=== PATIENT | male | born 1975 | race Caucasian/White ===

== ENCOUNTER 2018-01-18 09:26 | Observation (INO) | payer OTHER ==
[2018-01-18] MEDS ORDERED: HEPARIN SODIUM,PORCINE 5,000 UNIT/ML 1 ML VIAL IV STA (13:13)
[2018-01-18] MEDS ORDERED: NITROGLYCERIN OINT 1 INCH/GM PACKET TOPICAL STA (13:13)
[2018-01-18] MEDS ORDERED: HEPARIN SOD,PORK IN 0.45% NACL 25,000 UNIT in 0.45% NACL 1 500ML.BAG IV SCH (13:15)
[2018-01-18] MEDS ORDERED: SODIUM CHLORIDE 0.9% 1,000 ML IV SCH (13:30)
[2018-01-18 13:55] LABS: Basophils # (A) 0.1 k/uL (0-0.2); Basophils % (A) 1 %; Eosinophils # (A) 0.2 k/uL (0-0.7); Eosinophils % (A) 1 %; HCT 48.2 % (39.0-53.0); HGB 15.8 gm/dL (13.0-17.5); Lymphocytes # (A) 2.5 k/uL (1.0-4.8); Lymphocytes % (A) 19 %; MCH 30.9 pg (25.0-35.0); MCHC 32.7 g/dL (31.0-37.0); MCV 94.4 fL (80.0-100.0); Mean Platelet Volume 7.8; Monocytes # (A) 0.8 k/uL (0-1.0); Monocytes % (A) 6 %; Neutrophils # (A) 9.3 k/uL (1.3-7.7); Neutrophils % (A) 72 %; Platelet Count 211 k/uL (150-450); RBC 5.11 m/uL (4.30-5.90); WBC 12.9 k/uL (3.8-10.6)
[2018-01-18 14:04] LABS: Partial Thromboplastin Time 23.5 sec (22.0-30.0); Prothrombin Time 10.1 sec (9.0-12.0)
[2018-01-18 14:06] LABS: ALT 29 U/L (21-72); AST 15 U/L (17-59); Alkaline Phosphatase 57 U/L (38-126); Anion Gap 10 mmol/L; Blood Urea Nitrogen 17 mg/dL (9-20); Calcium 9.1 mg/dL (8.4-10.2); Carbon Dioxide 22 mmol/L (22-30); Chloride 107 mmol/L (98-107); Glucose 89 mg/dL (74-99); Magnesium 1.8 mg/dL (1.6-2.3); Potassium 4.2 mmol/L (3.5-5.1); Sodium 139 mmol/L (137-145); Total Bilirubin 0.5 mg/dL (0.2-1.3); Total Protein 6.7 g/dL (6.3-8.2)
[2018-01-18 14:59] LABS: Creatine Kinase 92 U/L (55-170)
--- NOTE | 2018-01-18 15:01 | P.CRDCN ---
History of Present Illness History of present illness: Mr. Grullon is a pleasant 42-year-old male with no significant past medical history other than chronic nicotine dependence. He states he doesn' t follow with a physician for at least the last 10 years. He denies history of hypertension, dyslipidemia, diabetes mellitus or coronary artery disease. His mother and father both had premature coronary artery disease in their 30's and 40's and are both decreased. He has never seen a wood molder for any reason. We have been asked to see him in consultation for chest pain. He states yesterday while he was walking leisurely through his barn he felt a tight pinching sensation in the left precordial region and into his axilla. The pain was intense in nature but brief. It was intermittent throughout the remainder of the day yesterday with no specific aggravating factors. He denies radiation to the arm, back, neck or jaw. He denies associated shortness of breath, dizziness, palpitations, nausea, vomiting or diaphoresis. He went to sleep last night and the pain had resolved. He woke up this morning with the pain again ongoing in the chest in the same region radiating to the left axilla. He still did not have any radiation to the arm, back, neck or jaw or shortness of breath, dizziness, palpitations, nausea, vomiting or diaphoresis. He was transferred here from [facility] for further cardiac evaluation. At the time of my exam he is seen sitting up in bed with family at the bedside. He continues to complain of a pinching sensation in the chest. He also mentions that at times he feels his heart racing briefly with no specific aggravating factors. Comes at rest mostly. EKG obtained at [place] on admission reveals sinus mechanism with no acute ST or T wave abnormalities noted. Chest x-ray obtained at [facility]'s negative for an acute cardiopulmonary process. Laboratory data at [facility] reviewed, hemoglobin 17, platelets 237 , WBC 10.4, sodium 137, potassium 4.1, creatinine 1.1, cardiac enzymes negative times one at 725 this morning. He takes no daily medications. Review of Systems At the time of my exam: CONSTITUTIONAL: Denies fever. Denies chills. EYES: Denies blurred vision. Denies vision changes. Denies eye pain. EARS, NOSE, MOUTH & THROAT: Denies headache. Denies sore throat. Denies ear pain. CARDIOVASCULAR: Complains of chest pain. Denies shortness of breath. Denies orthopnea. Denies PND. Denies palpitations. RESPIRATORY: Denies cough. GASTROINTESTINAL: Denies abdominal pain. Denies diarrhea. Denies constipation. Denies nausea. Denies vomiting. MUSCULOSKELETAL: Denies myalgias. INTEGUMENTARY: Denies pruitis. Denies rash. NEUROLOGIC: Denies numbness. Denies tingling. Denies weakness. PSYCHIATRIC: Denies anxiety. Denies depression. ENDOCRINE: Denies fatigue. Denies weight change. Denies polydipsia. Denies polyurina. GENITOURINARY: Denies burning, hematuria or urgency with micturation. HEMATOLOGIC: Denies history of anemia. Denies bleeding. Past Medical History Additional Past Medical History / Comment(s): Bronchitis History of Any Multi-Drug Resistant Organisms: None Reported Past Surgical History: Tonsillectomy Past Anesthesia/Blood Transfusion Reactions: No Reported Reaction Smoking Status: Current every day smoker - Past Family History Father Family Medical History: COPD Additional Family Medical History / Comment(s): Father from emphysema at the age of 60 or 61yrs. Mother Family Medical History: Dementia Additional Family Medical History / Comment(s): Mother from dementia in her 50s. Medications and Allergies Home Medications Medication Instructions Recorded Confirmed Type Aspirin 650 mg PO ONCE PRN 01/18/18 01/18/18 History Allergies Allergy/AdvReac Type Severity Reaction Status Date / Time No Known Allergies Allergy Verified 01/18/18 12:45 Physical Exam Vitals: Vital Signs Temp Pulse Resp BP Pulse Ox 01/18/18 12:00 60 16 01/18/18 11:56 98.3 F 60 16 154/94 96 Intake and Output 01/17/18 01/18/18 01/18/18 22:59 06:59 14:59 Intake Total 200 Balance 200 Intake: Oral 200 Other: Voiding Method Toilet Weight 91.5 kg Blood pressure 154/94 heart rate 68 afebrile maintaining oxygen saturation on room air GENERAL: This is a 42-year-old male in no apparent distress at the time of my examination. HEENT: Head is atraumatic, normocephalic. Pupils are equal, round. Sclerae anicteric. Conjunctivae are clear. Mucous membranes of the mouth are moist. Neck is supple. There is no jugular venous distention. No carotid bruit is heard. LUNGS: Clear to auscultation no wheezes, rales or rhonchi. Positive chest wall tenderness is noted on palpation. No chest wall tenderness with deep breathing. HEART: Regular rate and rhythm without murmurs, rubs or gallops. S1 and S2 heard. ABDOMEN: Soft, nontender. Bowel sounds are heard. No organomegaly noted. EXTREMITIES: No evidence of peripheral edema and no calf tenderness noted. VASCULAR: Radial and dorsalis pedis pulses palpated, no evidence of clubbing. NEUROLOGIC: Patient is awake, alert and oriented x3. Results 01/18/18 13:35 01/18/18 13:35 Cardiac Enzymes 01/18/18 Range/Units 13:35 AST 15 L (17-59) U/L Coagulation 01/18/18 Range/Units 13:35 PT 10.1 (9.0-12.0) sec APTT 23.5 (22.0-30.0) sec CBC 01/18/18 Range/Units 13:35 WBC 12.9 H (3.8-10.6) k/uL RBC 5.11 (4.30-5.90) m/uL Hgb 15.8 (13.0-17.5) gm/dL Hct 48.2 (39.0-53.0) % Plt Count 211 (150-450) k/uL Comprehensive Metabolic Panel 01/18/18 Range/Units 13:35 Sodium 139 (137-145) mmol/L Potassium 4.2 (3.5-5.1) mmol/L Chloride 107 (98-107) mmol/L Carbon Dioxide 22 (22-30) mmol/L BUN 17 (9-20) mg/dL Creatinine 0.88 (0.66-1.25) mg/dL Glucose 89 (74-99) mg/dL Calcium 9.1 (8.4-10.2) mg/dL AST 15 L (17-59) U/L ALT 29 (21-72) U/L Alkaline Phosphatase 57 (38-126) U/L Total Protein 6.7 (6.3-8.2) g/dL Albumin 4.0 (3.5-5.0) g/dL Current Medications Generic Name Dose Route Start Last Admin Trade Name Freq PRN Reason Stop Dose Admin Heparin Sodium/Sodium Chloride 500 mls @ 19.98 mls/hr 01/18/18 13:15 25,000 unit/ Sodium Chloride IV .Q24H AGNES Protocol 10.92 UNITS/KG/HR Sodium Chloride 1,000 mls @ 100 mls/hr 01/18/18 13:30 Saline 0.9% IV .Q10H AGNES Intake and Output 01/17/18 01/18/18 01/18/18 22:59 06:59 14:59 Intake Total 200 Balance 200 Intake: Oral 200 Other: Voiding Method Toilet Weight 91.5 kg Patient Weight 01/19/18 06:59 Weight 91.5 kg 01/18/18 13:35 01/18/18 13:35 Assessment and Plan Assessment: ASSESSMENT Chest pain, atypical. No EKG evidence of acute ischemia Chronic nicotine dependence Daily marijuana use PLAN Continue to obtain serial cardiac enzymes to rule out an acute coronary event. Obtain 2D echocardiogram and doppler study to assess cardiac structure and function. Check lipid panel, TSH and magnesium level. Smoking tobacco and marijuana cessation highly recommended and discussed. Further recommendations to follow based on clinical course. Thank you kindly for this consultation. Nurse Practitioner note has been reviewed, I agree with a documented findings and plan of care. Patient was seen and examined.
[2018-01-18 15:11] LABS: Creatine Kinase MB 0.5 ng/mL (0.0-2.4); Troponin I <0.012 ng/mL (0.000-0.034)
[2018-01-18] MEDS ORDERED: IPRATROPIUM-ALBUTEROL 3 ML NEB INHALATION PRN (15:58)
--- NOTE | 2018-01-18 16:04 | P.HPIM ---
History of Present Illness Patient is a 42-year-old pleasant gentleman with no significant past medical history came in with compensative chest pain sharp in nature 3-4/10 in severity nonradiating and not associated with food, nonpleuritic , constant pain not associated with shortness of breath lightheadedness diaphoresis. Patient does have a cough unable to bring up anything chest x-ray did not show any pneumonic process. Patient had 2 sets of troponins that are negative EKG showed normal normal sinus rhythm. Patient does have history of premature coronary artery disease in both mother and father had a I can't infarctions in their 30s and 40s. Patient denied any fever chills nausea vomiting no other significant abnormality was appreciated. Patient was transferred from [facility]. Review of Systems REVIEW OF SYSTEMS: CONSTITUTIONAL: No fever, no malaise, no fatigue. HEENT: No recent visual problems or hearing problems. Denied any sore throat. CARDIOVASCULAR: No chest pain, orthopnea, PND, no palpitations, no syncope. PULMONARY: No shortness of breath, no cough, no hemoptysis. GASTROINTESTINAL: No diarrhea, no nausea, no vomiting, no abdominal pain. Normoactive bowel sounds. NEUROLOGICAL: No headaches, no weakness, no numbness. HEMATOLOGICAL: Denies any bleeding or petechiae. GENITOURINARY: Denies any burning micturition, frequency, or urgency. MUSCULOSKELETAL/RHEUMATOLOGICAL: Denies any joint pain, swelling, or any muscle pain. ENDOCRINE: Denies any polyuria or polydipsia. The rest of the 14-point review of systems is negative. Past Medical History Additional Past Medical History / Comment(s): Bronchitis History of Any Multi-Drug Resistant Organisms: None Reported Past Surgical History: Tonsillectomy Past Anesthesia/Blood Transfusion Reactions: No Reported Reaction Smoking Status: Current every day smoker - Past Family History Father Family Medical History: COPD Additional Family Medical History / Comment(s): Father from emphysema at the age of 60 or 61yrs. Mother Family Medical History: Dementia Additional Family Medical History / Comment(s): Mother from dementia in her 50s. Medications and Allergies Home Medications Medication Instructions Recorded Confirmed Type Aspirin 650 mg PO ONCE PRN 01/18/18 01/18/18 History Allergies Allergy/AdvReac Type Severity Reaction Status Date / Time No Known Allergies Allergy Verified 01/18/18 12:45 Physical Exam Vitals: Vital Signs Temp Pulse Resp BP Pulse Ox 01/18/18 15:51 98.3 F 59 L 16 143/84 99 01/18/18 12:00 60 16 01/18/18 11:56 98.3 F 60 16 154/94 96 Intake and Output 01/18/18 01/18/18 01/18/18 06:59 14:59 22:59 Intake Total 200 Balance 200 Intake: Oral 200 Other: Voiding Method Toilet Weight 91.5 kg PHYSICAL EXAMINATION: GENERAL: The patient is alert and oriented x3, not in any acute distress. Well developed, well nourished. HEENT: Pupils are round and equally reacting to light. EOMI. No scleral icterus. No conjunctival pallor. Normocephalic, atraumatic. No pharyngeal erythema. No thyromegaly. CARDIOVASCULAR: S1 and S2 present. No murmurs, rubs, or gallops. PULMONARY: Will expiratory wheezing was appreciated. ABDOMEN: Soft, nontender, nondistended, normoactive bowel sounds. No palpable organomegaly. MUSCULOSKELETAL: No joint swelling or deformity. EXTREMITIES: No cyanosis, clubbing, or pedal edema. NEUROLOGICAL: Gross neurological examination did not reveal any focal deficits. SKIN: No rashes. Results CBC & Chem 7: 01/18/18 13:35 01/18/18 13:35 Labs: Abnormal Lab Results - Last 24 Hours (Table) 01/18/18 01/18/18 Range/Units 13:35 13:35 WBC 12.9 H (3.8-10.6) k/uL Neutrophils # 9.3 H (1.3-7.7) k/uL AST 15 L (17-59) U/L Thrombosis Risk Factor Assmnt - Choose All That Apply Any of the Below Risk Factors Present?: Yes Each Factor Represents 1 point: Age 41-60 years, Obesity (BMI >25) Other Risk Factors: No Other congenital or acquired thrombophilia - If yes, enter type in comment: No Thrombosis Risk Factor Assessment Total Risk Factor Score: 2 Thrombosis Risk Factor Assessment Level: Low Risk Assessment and Plan Plan: -Chest pain: Atypical noncardiac pain. Cardiology will evaluate the patient probably a stress test tomorrow considering to this practice. Echocardiogram is being obtained.Third set of troponin will be obtained. His chest pain is probably musculoskeletal in nature. Patient's chest pain is known nonpleuritic but will obtain a d-dimer. -Undiagnosed early stasis COPD with minimal exacerbation: Patient will be started on inhaled steroids and as needed albuterol ipratropium. -Nicotine abuse and marijuana abuse: Counseling was provided.
[2018-01-18] MEDS: SYMBICORT 160-4.5 MCG INHALER INHALATION SCH (19:43)
[2018-01-19 00:43] LABS: Cholesterol 181 mg/dL (<200); HDL Cholesterol 52 mg/dL (40-60); LDL Cholesterol,Calculated 113 mg/dL (0-99); Triglycerides 79 mg/dL (<150)
[2018-01-19 04:19] LABS: Hemoglobin A1C 5.5 % (4.0-6.0)
[2018-01-19 08:07] VITALS: RESP 18
--- NOTE | 2018-01-19 08:26 | PN ---
PROGRESS NOTE Mr. Grullon is a 42-year-old male who was transferred from [facility] with symptoms of chest discomfort. The discomfort started the day before yesterday at rest and had respirophasic pattern to it. He has no associated dyspnea. No dizziness or palpitation. He has no prior cardiac history. 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 He is pain-free at this time. His medications at home included aspirin on a p.r.n. basis. REVIEW OF SYSTEMS: RESPIRATORY SYSTEM: He has no recent wheezing. No cough. GI SYSTEM: No recent GI bleed. No peptic ulcer disease. SYSTEM: No dysuria or hematuria. NERVOUS SYSTEM: No stroke or seizure. PHYSICAL EXAMINATION: Blood pressure 135/80 with the heart rate in the 50s. HEAD: Normocephalic. EYES: Sclerae anicteric. NECK: Good upstroke. No bruit. No jugular venous distention. LUNGS: Clear to auscultation. HEART: Regular rate and rhythm S1, S2. No S3. No rub. No gallop. ABDOMEN: Soft, nontender. Positive bowel sounds. No organomegaly. EXTREMITIES: No edema. Intact distal pulses. LAB DATA: Lab data revealed troponin less than 0.012 for 3 samples. Cholesterol 181, LDL of 113. Hemoglobin of 15.8. Potassium 4.2. EKG revealed sinus mechanism with no acute changes. IMPRESSION: 1. Chest discomfort atypical for ischemic heart disease. 2. Chronic tobacco use. 3. Mild hyperlipidemia. RECOMMENDATION: Will proceed with a stress echocardiogram to further evaluate his symptoms and guide his treatment. If there is no evidence of inducible ischemia then no further cardiac workup will be needed. MMODL / IJN: [id number] /
[2018-01-19] MEDS: SYMBICORT 160-4.5 MCG INHALER INHALATION SCH (08:55)
[2018-01-19] MEDS ORDERED: ASPIRIN 81 MG PO SCH (09:00)
[2018-01-19 11:47] VITALS: BP 122/73; PULSE 77; TEMP 98.1
--- NOTE | 2018-01-19 13:12 | ECHOF ---
Referral Reason:cp MEASUREMENTS -------- HEIGHT: 175.3 cm WEIGHT: 92.5 kg BP: RVIDd: 2.6 cm (< 3.3) IVSd: 1.4 cm (0.6 - 1.1) LVIDd: 4.7 cm (3.9 - 5.3) LVPWd: 1.3 cm (0.6 - 1.1) IVSs: 1.9 cm LVIDs: 2.9 cm LVPWs: 1.5 cm LA Diam: 3.6 cm (2.7 - 3.8) Ao Diam: 3.6 cm (2.0 - 3.7) AV Cusp: 1.9 cm (1.5 - 2.6) LA Diam: 4.0 cm (2.7 - 3.8) MV EXCURSION: 20.174 mm (> 18.000) MV EF SLOPE: 79 mm/s (70 - 150) EPSS: 0.3 cm MV E Christophe: 0.52 m/s MV DecT: 238 ms MV A Christophe: 0.68 m/s MV E/A Ratio: 0.77 RAP: 5.00 mmHg RVSP: 34.27 mmHg FINDINGS -------- Sinus rhythm. This was a technically good study. The left ventricular size is normal. There is moderate concentric left ventricular hypertrophy. O verall left ventricular systolic function is normal with, an EF between 55 - 60 %. The right ventricle is normal in size. The left atrial size is normal. The right atrial size is normal. The aortic valve is trileaflet, and appears structurally normal. No aortic stenosis or regurgitation. The mitral valve is normal. Mild mitral regurgitation is present. Mild tricuspid regurgitation present. There is no evidence of pulmonary hypertension. The right v entricular systolic pressure, as measured by Doppler, is 34.27mmHg. There is no pulmonic regurgitation present. The aortic root size is normal. There is no pericardial effusion. CONCLUSIONS -------- 1. Sinus rhythm. 2. The left ventricular size is normal. 3. There is moderate concentric left ventricular hypertrophy. 4. Overall left ventricular systolic function is normal with, an EF between 55 - 60 %. 5. The left atrial size is normal. 6. The aortic valve is trileaflet, and appears structurally normal. No aortic stenosis or regurgitati on. 7. Mild mitral regurgitation is present. 8. Mild tricuspid regurgitation present. 9. There is no evidence of pulmonary hypertension. 10. There is no pulmonic regurgitation present. 11. The aortic root size is normal. 12. There is no pericardial effusion. REGISTERED TRAVEL NURSE: Eli Gutierrez RDCS
--- NOTE | 2018-01-19 13:38 | ECHOS ---
STRESS ECHOCARDIOGRAM DATE OF SERVICE: 01/19/2018 INDICATIONS: Chest pain. MEDICATIONS: BASELINE HEART RATE: 64 BASELINE BLOOD PRESSURE: 135/61 MAXIMUM HEART RATE: 158 MAXIMUM BLOOD PRESSURE: 211/83 85% MPHR: 150 100% MPHR: 176 METS: 10.5 MAXIMUM STAGE REACHED: III TOTAL EXERCISE TIME: 9 minutes 31 seconds CLINICAL INFORMATION: Baseline rhythm is sinus mechanism, rate of 64, right axis deviation. No ST-segment changes. Baseline blood pressure 135/61 mmHg. Patient exercised on Tod protocol for 9 minutes 31 seconds reaching peak rate of 158 beats per minute, which is equal to 89% maximum predicted heart rate. Peak blood pressure 211/83 mmHg. Test was terminated secondary to fatigue. There is no chest pain. Electrocardiograph monitoring revealed [address]-segment depression that resolved rapidly in recovery. Baseline echocardiogram revealed normal wall motion. At peak exercise there was normal wall motion augmentation with no hypokinesis or dyskinesis. CONCLUSION: 1. Average exercise tolerance with borderline positive electrocardiograph stress testing. 2. Normal stress echocardiogram with no evidence of stress induced ischemia. MMODL / IJN: [id number] /
--- NOTE | 2018-01-19 16:03 | P.DS ---
Providers Date of admission: 01/18/18 11:54 Expected date of discharge: 01/19/18 Attending physician: Gab Wallace Consults: 01/18/18 13:15 Consult Physician Routine Consulting Provider: Steve Meyer Consult Reason/Comments: cp Do you want consulting provider notified?: Yes Primary care physician: Stated None Dr. Hopkins Hospital Course: Final Diagnoses: -Chest pain: Atypical noncardiac pain. His chest pain is probably musculoskeletal in nature. Patient's chest pain is known nonpleuritic, negative D-DImer. -Undiagnosed early stages of COPD with minimal exacerbation: Patient will be started on inhaled steroids and as needed albuterol ipratropium. -Nicotine abuse and marijuana abuse: Counseling was provided. Hospital course:Patient is a 42-year-old pleasant gentleman with no significant past medical history came in with compensative chest pain sharp in nature 3-4/ 10 in severity nonradiating and not associated with food, nonpleuritic , constant pain not associated with shortness of breath lightheadedness diaphoresis. Patient does have a cough unable to bring up anything chest x-ray did not show any pneumonic process. Patient had 2 sets of troponins that are negative EKG showed normal normal sinus rhythm. Patient does have history of premature coronary artery disease in both mother and father had a I can't infarctions in their 30s and 40s. Patient denied any fever chills nausea vomiting no other significant abnormality was appreciated. Patient was transferred from [facility]. Echo reported normal LV function, EF 55-60%, moderate concentric left ventricular hypertrophy, no pulmonary hypertension, no pericardial effusion. Troponins negative 3 .Evaluated by Cardiology, underwent stress echo. Stress echo reported average exercise tolerance with borderline positive electrocardiographic stress testing. Normal stress echocardiogram with no evidence of stress-induced ischemia. Cleared by cardiology for discharge. Patient is being discharged home in a stable condition with guarded prognosis. EXAMINATION: GENERAL: The patient is alert and oriented x3, not in any acute distress. CARDIOVASCULAR: S1 and S2 present. No murmurs, rubs, or gallops. PULMONARY: Will expiratory wheezing was appreciated. ABDOMEN: Soft, nontender, nondistended, normoactive bowel sounds. No palpable organomegaly. NEUROLOGICAL: Gross neurological examination did not reveal any focal deficits. The impression and plan of care has been dictated as directed. : I performed a history and examination of this patient, discussed the same with the dictator. I agree with the dictator's note ,documented as a scribe. Any additional findings or plans will be noted. Time taken: 35 min Patient Condition at Discharge: Stable Plan - Discharge Summary Discharge Rx Participant: No New Discharge Prescriptions: New Aspirin 81 mg PO DAILY chew Budesonide-Formot 160-4.5 Mcg [Symbicort 160-4.5 Mcg Inhaler] 2 puff INHALATION RT-BID #1 inh Discontinued Aspirin 650 mg PO ONCE PRN PRN Reason: Chest Pain Discharge Medication List Aspirin 81 mg PO DAILY chew 01/19/18 [Rx] Budesonide-Formot 160-4.5 Mcg [Symbicort 160-4.5 Mcg Inhaler] 2 puff INHALATION RT-BID #1 inh 01/19/18 [Rx] Follow up Appointment(s)/Referral(s): Steve Meyer MD [STAFF PHYSICIAN] - As Needed Andrea Hopkins MD [REFERRING] - 3 Days (Please arrange appointment, new PCP, prior to discharge) Ambulatory/Diagnostic Orders: Complete Blood Count w/diff [LAB.AMB] Time Frame: 3 Days, Location: None Selected Patient Instructions/Handouts: Chest Pain (GEN) Activity/Diet/Wound Care/Special Instructions: Diet: Cardiac, low cholesterol Discharge Disposition: HOME SELF-CARE
== END 2018-01-19 14:02 | disposition home or self-care (01) ==
LOC: 3OBS 11:54
PROVIDERS: ADMIT Internal Medicine; ATTEND Internal Medicine
DX: R07.89 Other chest pain (principal); R07.2 Precordial pain; J44.9 Chronic obstructive pulmonary disease, unspecified; E78.5 Hyperlipidemia, unspecified; F17.200 Nicotine dependence, unspecified, uncomplicated; Z82.49 Family history of ischemic heart disease and other diseases of the circulatory system; Z87.19 Personal history of other diseases of the digestive system; Z81.8 Family history of other mental and behavioral disorders; E66.9 Obesity, unspecified; Z68.29 Body mass index [BMI] 29.0-29.9, adult
CPT/HCPCS: 94640 ×2; 93306; 93351; 85379; 80061; 80053; 84443; 82550; 82553; 83735; 84484 ×2; 85025; 85610; 85730; 83036; G0378 ×2; G0379